=== PATIENT | female | born 2000 | race Caucasian/White ===

== ENCOUNTER 2025-01-09 06:58 | Day surgery (SDC) | payer OTHER ==
[2025-01-05 11:52] VITALS: BMI 29.9
[2025-01-09] MEDS: ceFAZolin 2 GRAM PREMIX BAG IVPB ONE
[2025-01-09] MEDS ORDERED: LIDOCAINE HCL/PF 2% SDV 5ML VIAL ONE (10:27)
[2025-01-09] MEDS ORDERED: PROPOFOL 20 ML ONE ×3 (10:28→12:01)
[2025-01-09] MEDS ORDERED: MIDAZOLAM HCL 2 MG/2 ML SINGLE DOSE VIAL ONE ×2 (10:28→11:34)
[2025-01-09] MEDS ORDERED: SUCCINYLCHOLINE CHLORIDE 200 MG/10 ML SYRINGE ONE (11:34)
[2025-01-09] MEDS: BUPIVACAINE HCL/PF 0.25% (2.5MG/ML) 10 ML VIAL IJ ONE ×3 (12:20)
[2025-01-09] MEDS ORDERED: ONDANSETRON 4 MG/2 ML VIAL IVPUSH PRN (13:00)
[2025-01-09] MEDS: LACTATED RINGERS SOLUTION 1,000 ML IV SCH (13:19)
[2025-01-09] MEDS: ACETAMINOPHEN 1000 MG/100 ML BAG IVPB ONE (13:22)
[2025-01-09 14:34] VITALS: RESP 18
[2025-01-09 14:51] VITALS: BP 126/65; PULSE 77; TEMP 97.7
== END 2025-01-09 15:35 | disposition home or self-care (01) ==
LOC: JASU-SURG 06:58
PROVIDERS: ATTEND Obstetrics & Gynecology
PROC: 0UBM0ZZ Excision of Vulva, Open Approach (ICD-10-PCS; principal; 2025-01-09 11:00)
DX: N90.89 Other specified noninflammatory disorders of vulva and perineum (principal)
CPT/HCPCS: 81025; 88305-TC; 94760